=== PATIENT | female | born 1940 | race Caucasian/White ===

== ENCOUNTER 2017-01-29 09:49 | Emergency (ER) | payer OTHER, MEDICAID ==
[~2017-01-29] VITALS: Ht 157.5 cm; Wt 64.4 kg
[2017-01-29 09:50] VITALS: BP 185/98; PULSE 87; RESP 18; TEMP 97.8; O2SAT 98
--- NOTE | 2017-01-29 09:50 | NUR ---
Placed in room 06. Placed on monitoring engineer, blood pressure machine and pulse oximeter. To gown for exam. Side rails up. Report given to RALPH John.
--- NOTE | 2017-01-29 09:52 | NUR ---
Dr. Walters at bedside for evaluation
[2017-01-29] MEDS ORDERED: cloNIDine HCL 0.1 MG TABLET PO ONE (10:00)
[2017-01-29] MEDS ORDERED: cloNIDine HCL 0.1 MG TABLET ONE (10:09)
[2017-01-29] MEDS ORDERED: LORA-258 PO (10:21)
[2017-01-29] MEDS ORDERED: LOSA100T11 PO (10:21)
[2017-01-29] MEDS ORDERED: TRIA430O2 TP (10:21)
[2017-01-29] MEDS ORDERED: FLUT16SP16 NS (10:21)
[2017-01-29] MEDS ORDERED: ATEN50TA PO (10:21)
--- NOTE | 2017-01-29 10:21 | NUR ---
Medication reconciliation completed with information provided by patient. Any prior medication reconciliation on file was reviewed and corrected.
[2017-01-29 10:32] LABS: BASOPHILS % (AUTO) 0.2 % (0.0-2.0); EOSINOPHILS # (AUTO) 0.1 K/uL (0.0-0.4); EOSINOPHILS % (AUTO) 2.4 % (0.0-4.0); HEMATOCRIT 38.7 % (36-48); HEMOGLOBIN 12.9 g/dL (12.0-16.0); LYMPHOCYTES # (AUTO) 0.8 K/uL (1.0-5.5); LYMPHOCYTES % (AUTO) 17.6 % (20.5-51.5); MEAN CORPUSCULAR HEMOGLOBIN 29 pg (27-31); MEAN CORPUSCULAR HGB CONC 33 % (32-36); MEAN CORPUSCULAR VOLUME 86 fL (79.0-98.0); MONOCYTES # (AUTO) 0.2 K/uL (0.0-1.0); MONOCYTES % (AUTO) 5.4 % (1.7-9.3); NEUTROPHILS # (AUTO) 3.5 K/uL (1.8-7.7); NEUTROPHILS % (AUTO) 74.4 % (40.0-70.0); PLATELET COUNT (AUTO) 129 K/uL (130-430); RED CELL DISTRIBUTION WIDTH 13.8 % (9.0-15.0); WHITE BLOOD COUNT (AUTO) 4.6 K/uL (4.8-10.8)
[2017-01-29 10:42] LABS: ANION GAP 9 (5-15); CALCIUM 8.5 mg/dL (8.4-11.0); CHLORIDE 108 mmol/L (98-107); CREATININE 0.73 mg/dL (0.55-1.30); GLUCOSE 104 mg/dL (70-99); SODIUM SERUM 143 mmol/L (136-145); UREA NITROGEN, BLOOD 14 mg/dL (8-21)
[2017-01-29 10:50] LABS: ALANINE AMINOTRANSFERASE 8 U/L (12-78); ALBUMIN 3.5 g/dL (3.4-4.8); ASPARTATE AMINOTRANSFERASE 23 U/L (10-37); TOTAL BILIRUBIN 0.4 mg/dL (0.0-1.0); TOTAL PROTEIN, SERUM 6.7 g/dL (6.4-8.3)
[2017-01-29 10:57] LABS: BILIRUBIN,URINE NEGATIVE (NEGATIVE); BLOOD, URINE NEGATIVE (NEGATIVE); CLARITY/URINE CLEAR (CLEAR); COLOR,URINE YELLOW (YELLOW); GLUCOSE,URINE NEGATIVE (NEGATIVE); KETONES,URINE NEGATIVE (NEGATIVE); LEUKOCYTE ESTERASE ,URINE TRACE (NEGATIVE); NITRITE, URINE POSITIVE (NEGATIVE); PROTEIN URINE NEGATIVE (NEGATIVE); UROBILINOGEN,URINE 0.2 (0.2-1.0)
[2017-01-29 11:03] LABS: BACTERIA,URINE MANY /HPF (None Seen); MUCUS,URINE None Seen /LPF (None Seen); RBC,URINE NONE SEEN /HPF (0-3)
[2017-01-29 11:25] VITALS: BP 133/80; PULSE 87; RESP 18; TEMP 97.8; O2SAT 98
--- NOTE | 2017-01-29 11:26 | NUR ---
Patient given written and verbal discharge instructions and verbalizes understanding. ER MD discussed with patient the results and treatment provided. Patient in stable condition. ID arm band removed. Rx of Ciprofloxacin and Clonidine given. Patient educated on pain management and to follow up with PMD. Pain Scale 0/10. Opportunity for questions provided and answered.
== END 2017-01-29 11:25 | disposition home or self-care (01) ==
LOC: SED 09:49
DX: N39.0 Urinary tract infection, site not specified (principal); I10 Essential (primary) hypertension; F41.9 Anxiety disorder, unspecified; Z91.02 Food additives allergy status; Z88.5 Allergy status to narcotic agent
CPT/HCPCS: 36415; 80053; 81000-TC; 84484; 85025; 87086; 93005; 99285

== ENCOUNTER 2017-11-21 12:49 | Emergency (ER) | payer OTHER, MEDICAID ==
[~2017-11-21] VITALS: Ht 157.5 cm; Wt 68.0 kg
[~2017-11-21 12:49] MED LIST: ATEN50TA PO; FLUT16SP16 NS; LORA-258 PO; LOSA100T11 PO; TRIA430O2 TP
[2017-11-21 12:54] VITALS: BP_SYST 192
--- NOTE | 2017-11-21 12:54 | NUR ---
Patient to ER bed 5 to gown for evaluation. Side rails up. Report received from RALPH Bolivar.
--- NOTE | 2017-11-21 12:57 | NUR ---
Pt complains of headache to left side of head that radiates to neck, pain to right upper quadrant of abdomen that radiates to right flank. Pt also complains of pain to right lower extremity that radiates to hip. Per patient, she feels nauseous but no vomiting. Pt denies pain or burning while urinating. No other injuries/complaints per patient or noted.
--- NOTE | 2017-11-21 13:00 | NUR ---
ER Dr. Ray at bedside examining patient.
[2017-11-21] MEDS ORDERED: ALPRAZolam 0.25 MG TABLET PO ONE (13:15)
[2017-11-21] MEDS ORDERED: cloNIDine HCL 0.1 MG TABLET PO ONE (13:15)
--- NOTE | 2017-11-21 14:25 | NUR ---
Pt sleeping in hospital bed. No acute distress. Will continue to monitor.
[2017-11-21 14:46] LABS: BILIRUBIN,URINE NEGATIVE (NEGATIVE); BLOOD, URINE NEGATIVE (NEGATIVE); CLARITY/URINE CLEAR (CLEAR); COLOR,URINE YELLOW (YELLOW); GLUCOSE,URINE NEGATIVE (NEGATIVE); KETONES,URINE NEGATIVE (NEGATIVE); LEUKOCYTE ESTERASE ,URINE NEGATIVE (NEGATIVE); NITRITE, URINE POSITIVE (NEGATIVE); PH,URINE 5.5 (5.0-8.0); PROTEIN URINE NEGATIVE (NEGATIVE); UROBILINOGEN,URINE 0.2 (0.2-1.0)
[2017-11-21 14:55] LABS: BACTERIA,URINE MANY /HPF (None Seen); RBC,URINE 0-3 /HPF (0-3); WBC,URINE 0-3 /HPF (0-3)
[2017-11-21 14:56] LABS: MUCUS,URINE 1+ /LPF (None Seen)
[2017-11-21] MEDS ORDERED: CIPROFLOXACIN HCL 500 MG TABLET PO ONE (15:00)
[2017-11-21 15:20] VITALS: BP_SYST 117
--- NOTE | 2017-11-21 15:20 | NUR ---
Patient given written and verbal discharge instructions and verbalizes understanding. ER MD discussed with patient the results and treatment provided. Patient in stable condition. ID arm band removed. Rx of Ativa, Cipro, and Ultram given. Patient educated on pain management and to follow up with PMD. Pain Scale 2. Opportunity for questions provided and answered.
== END 2017-11-21 15:20 | disposition home or self-care (01) ==
LOC: SED 12:49
DX: F41.9 Anxiety disorder, unspecified (principal); I10 Essential (primary) hypertension; Z88.5 Allergy status to narcotic agent; Z91.041 Radiographic dye allergy status
CPT/HCPCS: 74018; 81000-TC; 87086; 99285

== ENCOUNTER 2020-01-25 14:32 | Emergency (ER) | payer MEDICAID, OTHER ==
[~2020-01-25] VITALS: Ht 157.5 cm; Wt 68.0 kg
[2020-01-25 14:32] VITALS: BP_SYST 194
[~2020-01-25 14:32] MED LIST changes: -LOSA100T11 PO; +LOSA100T3 PO
[2020-01-25] MEDS: cloNIDine HCL 0.1 MG TABLET PO ONE (15:14)
[2020-01-25 15:27] LABS: BILIRUBIN,URINE NEGATIVE (NEGATIVE); BLOOD, URINE NEGATIVE (NEGATIVE); COLOR,URINE YELLOW (YELLOW); GLUCOSE,URINE NEGATIVE (NEGATIVE); KETONES,URINE NEGATIVE (NEGATIVE); NITRITE, URINE POSITIVE (NEGATIVE); PROTEIN URINE NEGATIVE (NEGATIVE); UROBILINOGEN,URINE 0.2 (0.2-1.0)
[2020-01-25 15:35] LABS: CLARITY/URINE HAZY (CLEAR); LEUKOCYTE ESTERASE ,URINE TRACE (NEGATIVE)
[2020-01-25 15:38] LABS: BACTERIA,URINE MODERATE /HPF (None Seen); MUCUS,URINE None Seen /LPF (None Seen); RBC,URINE NONE SEEN /HPF (0-3)
[2020-01-25 15:47] LABS: BASOPHILS % (AUTO) 0.5 % (0.0-2.0); EOSINOPHILS % (AUTO) 0.7 % (0.0-4.0); HEMOGLOBIN 15.5 g/dL (12.0-16.0); LYMPHOCYTES # (AUTO) 0.8 K/uL (1.0-5.5); MEAN CORPUSCULAR HEMOGLOBIN 30 pg (27-31); MEAN CORPUSCULAR HGB CONC 34 % (32-36); MEAN CORPUSCULAR VOLUME 90 fL (79.0-98.0); MONOCYTES # (AUTO) 0.3 K/uL (0.0-1.0); MONOCYTES % (AUTO) 6.1 % (1.7-9.3); NEUTROPHILS # (AUTO) 3.7 K/uL (1.8-7.7); NEUTROPHILS % (AUTO) 76.7 % (40.0-70.0); RED CELL DISTRIBUTION WIDTH 13.8 % (9.0-15.0); WHITE BLOOD COUNT (AUTO) 4.8 K/uL (4.8-10.8)
[2020-01-25 16:07] LABS: ANION GAP 5 (5-15); CALCIUM 8.9 mg/dL (8.4-11.0); CHLORIDE 100 mmol/L (98-107); CREATININE 0.92 mg/dL (0.55-1.30); GLUCOSE 92 mg/dL (70-99); POTASSIUM 4.2 mmol/L (3.5-5.1); SODIUM SERUM 136 mmol/L (136-145); UREA NITROGEN, BLOOD 15 mg/dL (8-21)
[2020-01-25 16:11] LABS: PLATELET COUNT (AUTO) 118 K/uL (130-430)
[2020-01-25] MEDS: hydrALAZINE HCL 20 MG/ML VIAL IVP ONE (16:13)
[2020-01-25 16:16] LABS: ALANINE AMINOTRANSFERASE 30 U/L (12-78); ALBUMIN 3.8 g/dL (3.4-4.8); ASPARTATE AMINOTRANSFERASE 29 U/L (10-37); TOTAL BILIRUBIN 0.5 mg/dL (0.0-1.0)
[2020-01-25 16:22] LABS: PROTHROMBIN TIME 10.4 SECS (9.5-12.5)
[2020-01-25] MEDS: LEVOFLOXACIN 500 MG/D5W 100 ML IV ONE (16:48)
[2020-01-25] MEDS: MECLIZINE HCL 25 MG TABLET (ANITVERT) PO ONE (17:04)
[2020-01-25] MEDS: KETOROLAC TROMETHAMINE 30 MG VIAL IVP ONE (18:37)
[2020-01-25 19:02] VITALS: BP_SYST 144
== END 2020-01-25 19:04 | disposition home or self-care (01) ==
LOC: SED 14:32
DX: N39.0 Urinary tract infection, site not specified (principal); R42 Dizziness and giddiness; F41.9 Anxiety disorder, unspecified; I10 Essential (primary) hypertension; Z90.710 Acquired absence of both cervix and uterus; Z79.899 Other long term (current) drug therapy; Z88.8 Allergy status to other drugs, medicaments and biological substances; Z88.6 Allergy status to analgesic agent
CPT/HCPCS: 36415; 70450; 71045; 80053; 81000; 83605; 84484; 85025; 85610; 85730; 87040; 87086; 93005; 96365; 96375; 99285; J0360; J1885; J1956; J8597; 87186-TC